=== PATIENT | male | born 1985 | race Caucasian/White ===

== ENCOUNTER 2016-10-17 13:29 | Inpatient (IN) | payer BC, OTHER ==
[~2016-10-17] VITALS: Ht 175.3 cm; Wt 74.4 kg
[~2016-10-17 13:29] MED LIST: CLON0.1T14 PO; DICY20TA28 PO; DIPH50CA37 PO; Gabapentin PO; HYDR-3895 PO; Ibuprofen PO; METH-33 PO; Sertraline Hcl PO
[2016-10-17] MEDS ORDERED: SERT100T PO (14:31)
[2016-10-17 15:36] LABS: *AMPHETAMINE, URINE NEGATIVE (NEGATIVE); *BARBITURATE, URINE NEGATIVE (NEGATIVE); *CANNABINOID, URINE POSITIVE (NEGATIVE); *COCCAINE, URINE NEGATIVE (NEGATIVE); *OPIATE, URINE POSITIVE (NEGATIVE); *PHENCYCLIDINE SCREEN,URINE NEGATIVE (NEGATIVE)
[2016-10-17] MEDS ORDERED: IBUPROFEN 600 MG TABLET PO PRN (17:45)
[2016-10-17] MEDS ORDERED: PROMETHAZINE HCL 25 MG/1 ML VIAL IM PRN (17:45)
[2016-10-17] MEDS ORDERED: LOPERAMIDE HCL 2 MG CAPSULE PO PRN ×2 (17:45)
[2016-10-17] MEDS ORDERED: DICYCLOMINE HCL 20 MG TABLET PO PRN (17:45)
[2016-10-17] MEDS ORDERED: MIRALAX 17 GM POWD.PACK PO PRN (17:45)
[2016-10-17] MEDS ORDERED: ACETAMINOPHEN 325 MG TABLET PO PRN (17:45)
[2016-10-17] MEDS ORDERED: ONDANSETRON ODT 4 MG TAB.RAPDIS SL PRN (17:45)
[2016-10-17] MEDS ORDERED: MAG HYDROX/AL HYDROX/SIMETH 30 ML LIQUID UDC PO PRN (17:45)
[2016-10-17] MEDS ORDERED: BUPRENORPHINE HCL 2 MG TAB.SUBL SL PRN (17:45)
[2016-10-17] MEDS ORDERED: MAGNESIUM HYDROXIDE 30 ML LIQUID UDC PO PRN (17:45)
[2016-10-17 18:56] LABS: BASOPHILS # (AUTO) 0.1 K/uL (0.0-0.2); BASOPHILS % (AUTO) 1.2 % (0.0-2.0); EOSINOPHILS # (AUTO) 0.4 K/uL (0.0-0.7); EOSINOPHILS % (AUTO) 5.6 % (0.0-7.0); HEMATOCRIT 41.6 % (40.0-50.0); HEMOGLOBIN 13.5 g/dL (14.0-18.0); LYMPHOCYTES # (AUTO) 1.8 K/uL (0.8-4.8); LYMPHOCYTES % (AUTO) 27.9 % (20.5-51.5); MEAN CORPUSCULAR HEMOGLOBIN 27.5 uug (27.0-31.0); MEAN CORPUSCULAR HGB CONC 33 g/dL (32.0-37.0); MEAN CORPUSCULAR VOLUME 84.6 fL (82.0-92.0); MONOCYTES # (AUTO) 0.7 K/uL (0.1-1.30); MONOCYTES % (AUTO) 11.5 % (0.0-11.0); NEUTROPHILS # (AUTO) 3.5 K/uL (1.8-8.9); NEUTROPHILS % (AUTO) 53.8 % (38.5-71.5); PLATELET COUNT (AUTO) 251 K/uL (150-450); RED BLOOD CELL COUNT(AUTO) 4.92 MIL/uL (4.70-6.10); RED CELL DISTRIBUTION WIDTH 13.6 % (11.5-14.5); WHITE BLOOD COUNT (AUTO) 6.5 K/uL (4.0-11.2)
[2016-10-17 19:14] LABS: ALANINE AMINOTRANSFERASE 164 U/L (16-63); ALBUMIN 3.5 g/dL (3.4-5.0); ALKALINE PHOSPHATASE 53 U/L (50-136); ASPARTATE AMINOTRANSFERASE 61 U/L (15-37); BILIRUBIN,TOTAL 0.4 mg/dL (0.2-1.0); CALCIUM 8.7 mg/dL (8.5-10.1); CARBON DIOXIDE 32 mmol/L (21-32); CHLORIDE 103 mmol/L (98-107); CREATININE 0.9 mg/dL (0.6-1.3); GFR 97 mL/min (>60); GLUCOSE 101 mg/dL (74-106); MAGNESIUM 1.9 mg/dL (1.8-2.4); POTASSIUM 3.5 mmol/L (3.5-5.1); SODIUM SERUM 141 mmol/L (136-145); TOTAL PROTEIN, SERUM 7.2 g/dL (6.4-8.2); UREA NITROGEN, BLOOD 10 mg/dL (7-18)
[2016-10-17 19:24] LABS: ETHANOL < 3 MG/DL (0-0)
[2016-10-17] MEDS: CLONIDINE HCL 0.1 MG TABLET PO PRN (20:13)
[2016-10-17] MEDS: HYDROXYZINE PAMOATE 25 MG CAPSULE PO PRN (20:13)
[2016-10-17 20:23] LABS: HIV-1 p24 ANTIGEN NON REACTIVE (NONREACTIVE); HIV-1/2 ANTIBODY NON REACTIVE (NONREACTIVE)
[2016-10-17] MEDS ORDERED: Medication Not On Formulary EA ([Gabapentin] (Neurontin) 600 MG) PO SCH (21:45)
[2016-10-18] VITALS: BP 92/61
[2016-10-18 08:00] VITALS: BP 103/60
[2016-10-18] MEDS ORDERED: TUBERCULIN,PURIF.PROT.DERIV. 5 TU/0.1 ML TEST ID ONE (09:00)
[2016-10-18] MEDS: DOCUSATE SODIUM 250 MG CAPSULE PO SCH (09:00)
[2016-10-18] MEDS: GABAPENTIN 300 MG CAPSULE PO SCH ×3 (09:58→17:23)
[2016-10-18] MEDS: MULTIVITAMINS,THERAPEUTIC TABLET PO SCH (09:58)
[2016-10-18] MEDS: BUPRENORPHINE HCL 2 MG TAB.SUBL SL SCH ×3 (09:58→20:46)
[2016-10-18] MEDS ORDERED: SERTRALINE HCL 100 MG TABLET PO SCH (13:15)
[2016-10-18] MEDS: SERTRALINE HCL 100 MG TABLET PO SCH (13:30)
[2016-10-18 13:48] VITALS: BP 118/68
[2016-10-18 16:30] VITALS: BP 116/66
[2016-10-18 20:00] VITALS: BP 123/71
[2016-10-18] MEDS: diphenhydrAMINE 50 MG CAPSULE PO PRN (23:25)
[2016-10-18] MEDS: CLONIDINE HCL 0.1 MG TABLET PO PRN (23:25)
[2016-10-18] MEDS: HYDROXYZINE PAMOATE 25 MG CAPSULE PO PRN (23:26)
[2016-10-19] VITALS: BP 121/68
[2016-10-19 07:38] LABS: ALBUMIN 2.9 g/dL (3.4-5.0); BILIRUBIN,DIRECT 0.1 mg/dL (0.0-0.2); BILIRUBIN,TOTAL 0.2 mg/dL (0.2-1.0); TOTAL PROTEIN, SERUM 6.1 g/dL (6.4-8.2)
[2016-10-19 08:00] VITALS: BP 116/72
[2016-10-19] MEDS: GABAPENTIN 300 MG CAPSULE PO SCH ×3 (08:47→17:29)
[2016-10-19] MEDS: MULTIVITAMINS,THERAPEUTIC TABLET PO SCH (08:48)
[2016-10-19] MEDS: DOCUSATE SODIUM 250 MG CAPSULE PO SCH (08:48)
[2016-10-19] MEDS: SERTRALINE HCL 100 MG TABLET PO SCH (08:48)
[2016-10-19] MEDS ORDERED: BUPRENORPHINE HCL 2 MG TAB.SUBL SL SCH (09:00)
[2016-10-19 12:00] VITALS: BP 110/67
[2016-10-19] MEDS: BUPRENORPHINE HCL 2 MG TAB.SUBL SL SCH ×2 (15:26→20:43)
[2016-10-19 16:00] VITALS: BP 125/68
[2016-10-19 20:00] VITALS: BP 128/67
[2016-10-20] VITALS: BP 126/64
[2016-10-20 03:06] LABS: HCV AB >11.0 s/co ratio (0.0-0.9); HEPATITIS B CORE AB, IgM Negative (Negative); HEPATITIS B SURFACE AG Negative (Negative)
[2016-10-20] MEDS: METHOCARBAMOL 750 MG TABLET PO PRN (03:50)
[2016-10-20] MEDS: HYDROXYZINE PAMOATE 25 MG CAPSULE PO PRN (03:50)
[2016-10-20] MEDS: diphenhydrAMINE 50 MG CAPSULE PO PRN (03:50)
[2016-10-20 04:00] VITALS: BP 126/78
[2016-10-20 08:00] VITALS: BP 110/63
[2016-10-20] MEDS: GABAPENTIN 300 MG CAPSULE PO SCH ×3 (08:16→16:47)
[2016-10-20] MEDS: DOCUSATE SODIUM 250 MG CAPSULE PO SCH (08:16)
[2016-10-20] MEDS: MULTIVITAMINS,THERAPEUTIC TABLET PO SCH (08:16)
[2016-10-20] MEDS: BUPRENORPHINE HCL 2 MG TAB.SUBL SL SCH ×3 (08:16→20:47)
[2016-10-20] MEDS: SERTRALINE HCL 100 MG TABLET PO SCH (08:16)
[2016-10-20 12:00] VITALS: BP 119/70
[2016-10-20 16:00] VITALS: BP 118/73
[2016-10-20 20:00] VITALS: BP 125/69
[2016-10-21 04:00] VITALS: BP 121/72
[2016-10-21] MEDS: diphenhydrAMINE 50 MG CAPSULE PO PRN (05:16)
[2016-10-21] MEDS: METHOCARBAMOL 750 MG TABLET PO PRN (05:16)
[2016-10-21] MEDS: HYDROXYZINE PAMOATE 25 MG CAPSULE PO PRN (05:16)
[2016-10-21 08:17] VITALS: BP 110/63
[2016-10-21] MEDS ORDERED: BUPRENORPHINE HCL 2 MG TAB.SUBL SL SCH (09:00)
[2016-10-21] MEDS: DOCUSATE SODIUM 250 MG CAPSULE PO SCH (09:08)
[2016-10-21] MEDS: MULTIVITAMINS,THERAPEUTIC TABLET PO SCH (09:08)
[2016-10-21] MEDS: GABAPENTIN 300 MG CAPSULE PO SCH ×3 (09:08→16:53)
[2016-10-21] MEDS: SERTRALINE HCL 100 MG TABLET PO SCH (09:08)
[2016-10-21] MEDS: BACLOFEN 20 MG TABLET PO SCH ×2 (12:03→16:54)
[2016-10-21 13:13] VITALS: BP 133/78
[2016-10-21 17:49] VITALS: BP 130/80
[2016-10-21 20:31] VITALS: BP 129/66
[2016-10-21] MEDS ORDERED: HYDR-3895 PO (21:08)
[2016-10-21] MEDS ORDERED: DICY20TA28 PO (21:08)
[2016-10-21] MEDS ORDERED: Baclofen PO (21:08)
[2016-10-21] MEDS ORDERED: Ibuprofen PO (21:08)
[2016-10-21] MEDS ORDERED: DIPH50CA37 PO (21:08)
[2016-10-21] MEDS ORDERED: Gabapentin PO (21:08)
[2016-10-22 08:00] VITALS: BP 122/62
[2016-10-22] MEDS: DOCUSATE SODIUM 250 MG CAPSULE PO SCH (08:27)
[2016-10-22] MEDS: MULTIVITAMINS,THERAPEUTIC TABLET PO SCH (08:27)
[2016-10-22] MEDS: BACLOFEN 20 MG TABLET PO SCH (08:28)
[2016-10-22] MEDS: GABAPENTIN 300 MG CAPSULE PO SCH (08:28)
[2016-10-22] MEDS: SERTRALINE HCL 100 MG TABLET PO SCH (08:28)
[2016-10-22 09:06] LABS: *AMPHETAMINE, URINE NEGATIVE (NEGATIVE); *BARBITURATE, URINE NEGATIVE (NEGATIVE); *CANNABINOID, URINE POSITIVE (NEGATIVE); *COCCAINE, URINE NEGATIVE (NEGATIVE); *OPIATE, URINE NEGATIVE (NEGATIVE); *PHENCYCLIDINE SCREEN,URINE NEGATIVE (NEGATIVE)
== END 2016-10-22 13:02 | disposition other institution (70) | DRG 895 ==
LOC: SRC 13:29
PROVIDERS: ADMIT Internal Medicine; ATTEND Internal Medicine
PROC: HZ2ZZZZ Detoxification Services for Substance Abuse Treatment (ICD-10-PCS; principal; 2016-10-17)
PROC: HZ41ZZZ Group Counseling for Substance Abuse Treatment, Behavioral (ICD-10-PCS; 2016-10-18)
PROC: HZ31ZZZ Individual Counseling for Substance Abuse Treatment, Behavioral (ICD-10-PCS; 2016-10-20)
DX: F11.23 Opioid dependence with withdrawal (principal); F33.2 Major depressive disorder, recurrent severe without psychotic features; F17.210 Nicotine dependence, cigarettes, uncomplicated; F15.10 Other stimulant abuse, uncomplicated; Z81.8 Family history of other mental and behavioral disorders; Z81.1 Family history of alcohol abuse and dependence; Z59.0 Homelessness; F41.9 Anxiety disorder, unspecified
CPT/HCPCS: 36415; 70030-TC; 80307; 83735; 85025; 86580; 86592; 86705; 86803; 87340; 87806; A4663; G6040-TC; Q0162; Q0163

== ENCOUNTER 2020-04-05 23:32 | Emergency (ER) | payer BC, OTHER ==
[~2020-04-05] VITALS: Ht 175.3 cm; Wt 65.8 kg
[~2020-04-05 23:32] MED LIST changes: +Baclofen PO; +SERT100T PO; -Sertraline Hcl PO
[2020-04-05] MEDS ORDERED: SULFAMETH/TRIMETH 800/160 MG TABLET ONE (23:55)
[2020-04-05] MEDS ORDERED: SODIUM BICARBONATE 4.2 % (NEUT) 5 ML VIAL ONE (23:56)
[2020-04-05] MEDS ORDERED: LIDOCAINE 1%-EPI 1:100,000 20 ML VIAL ONE (23:57)
[2020-04-06] MEDS ORDERED: SULFAMETH/TRIMETH 800/160 MG TABLET PO ONE
[2020-04-06] MEDS ORDERED: LIDOCAINE 1%-EPI 1:100,000 20 ML VIAL IJ ONE
[2020-04-06] MEDS ORDERED: SODIUM BICARBONATE 4.2 % (NEUT) 5 ML VIAL TP ONE
--- NOTE | 2020-04-06 00:10 | NUR ---
dr ruiz started debridement of abcess on the left forearm , refused to finish the procedure . site is cleansed and pat dry and covered with non adhesive dressing . patient was fed sandwiches and juices
--- NOTE | 2020-04-06 00:55 | NUR ---
patient discharge with prescription given and explained , verbalizes understanding , ambulatory , with steady gait , 1/10pain from debridement of abscess, belongings sent with the patient
== END 2020-04-06 00:56 | disposition home or self-care (01) ==
LOC: ER 23:35
DX: L02.414 Cutaneous abscess of left upper limb (principal); S51.832S Puncture wound without foreign body of left forearm, sequela; X78.8XXS Intentional self-harm by other sharp object, sequela; Z59.0 Homelessness; F32.9 Major depressive disorder, single episode, unspecified; Z79.899 Other long term (current) drug therapy; Z86.19 Personal history of other infectious and parasitic diseases; F11.20 Opioid dependence, uncomplicated
CPT/HCPCS: 10060; 99283; J3490 ×2; A4663